=== PATIENT | female | born 1995 | race Native Hawaiian/Other Pacific Islander ===

== ENCOUNTER → 2022-01-21 | Outpatient (CLI) | payer MEDICAID ==
--- NOTE | 2022-01-21 11:01 | Diagnostic Imaging Report ---
PROCEDURE: Pelvic comp/transvaginal sonogram. TECHNIQUE: Complete transabdominal and transvaginal pelvic ultrasound was performed. In addition, limited pelvic Doppler was performed. INDICATION: Abnormal uterine bleeding. FINDINGS: Uterus is anteverted measuring 7.2 x 4.4 x 4.7 cm. No myometrial mass is detected. The endometrium is thickened measuring 20 mm. Left ovary was not visualized due to overlying bowel gas. Right ovary measures 4.2 x 3.0 x 4.0 cm. Right ovary does contain a cystic lesion with internal debris measuring 2.8 x 2.6 x 2.5 cm, suggestive of a hemorrhagic cyst. There is blood flow to the right ovary. No free fluid is seen. IMPRESSION: 1. Thickened endometrium at 20 mm. 2. Probable hemorrhagic cyst in the right ovary of 2.8 cm in size. Dictated by: Dictated on workstation # [id number]
== END ==
LOC: RAD 10:00
PROVIDERS: ATTEND Obstetrics & Gynecology
DX: N93.9 Abnormal uterine and vaginal bleeding, unspecified (principal); R93.89 Abnormal findings on diagnostic imaging of other specified body structures
CPT/HCPCS: 76830; 76856